=== PATIENT | male | born 2000 | race American Indian/Alaskan Native ===

== ENCOUNTER 2023-04-15 13:58 | Emergency (ER) | payer SELFPAY ==
[2023-04-15] MEDS ORDERED: Sodium Chloride 0.9% 1,000 ML IV ONE (14:24)
[2023-04-15] MEDS ORDERED: Ondansetron 4 MG/2 ML SDV IVPUSH ONE (14:24)
[2023-04-15 14:43] LABS: BASOPHILS ABSOLUTE AUTO 0.03 K/mm3 (0.01-0.08); BASOPHILS PERCENT AUTO 0.3 % (0.1-1.2); EOSINOPHILS ABSOLUTE AUTO 0.08 K/mm3 (0.04-0.54); EOSINOPHILS PERCENT AUTO 0.7 (0.8-7.0); HEMATOCRIT 49.6 % (40.1-51.0); HEMOGLOBIN 17.5 gm/dl (13.7-17.5); IMMATURE GRAN ABSOLUTE AUTO 0.06 K/mm3 (0.00-0.10); IMMATURE GRAN PERCENT AUTO 0.5 % (<=1.0); LYMPHOCYTES ABSOLUTE AUTO 1.51 K/mm3 (1.32-3.57); LYMPHOCYTES PERCENT AUTO 12.9 % (21.8-53.1); MEAN CORPUSCULAR HEMOGLOBIN 30.5 pg (25.7-32.2); MEAN CORPUSCULAR HGB CONC 35.3 g/dl (32.2-35.5); MEAN CORPUSCULAR VOLUME 86.4 fl (79.0-92.2); MEAN PLATELET VOLUME 10.7 fl (9.4-12.3); MONOCYTES ABSOLUTE AUTO 0.67 K/mm3 (0.30-0.82); MONOCYTES PERCENT AUTO 5.7 % (5.3-12.2); NEUTROPHILS ABSOLUTE AUTO 9.37 K/mm3 (1.78-5.38); NEUTROPHILS PERCENT AUTO 79.9 % (34.0-67.9); PLATELET COUNT,PLT 264 K/mm3 (163-337); RED BLOOD CELL COUNT 5.74 M/mm3 (4.63-6.08); WHITE BLOOD CELL COUNT,WBC 11.72 K/mm3 (4.23-9.07)
[2023-04-15 14:47] LABS: A/G RATIO 1.1 (1-2); ALBUMIN 4.3 g/dl (3.4-5.0); ANION GAP 14.8 (5-15); BILIRUBIN TOTAL 0.4 mg/dL (0.2-1.0); CALCIUM 8.8 mg/dL (8.5-10.1); EST CRCL DRUG DOSING (CG) 114.89 mL/min; ETHANOL BLOOD MEDICAL 0.03 gm% (0.00); MAGNESIUM 2.2 mg/dL (1.8-2.4); POTASSIUM,K 3.8 mEq/L (3.5-5.1); PROTEIN TOTAL,TP 8.4 g/dl (6.4-8.2)
[2023-04-15 17:02] LABS: BARBITURATE SCREEN,URINE NEGATIVE (CUTOFF=200); BENZODIAZEPINES SCREEN,URINE NEGATIVE (CUTOFF=150); BUPRENORPHINE SCREEN,URINE NEGATIVE (CUTOFF=10); METHADONE SCREEN, URINE NEGATIVE (CUT0FF=200); METHAMPHETAMINES SCREEN, URINE NEGATIVE (CUTOFF=500); OXYCODONE SCREEN,URINE NEGATIVE (CUT0FF=100); PROPOXYPHENE SCREEN,URINE NEGATIVE (CUTOFF=300); THC SCREEN,URINE 20 NG/ML PRESUMPTIVE POSITIVE (CUTOFF=50)
[2023-04-15 17:31] LABS: AMPHETAMINES SCREEN, URINE NEGATIVE (CUTOFF=500)
== END 2023-04-15 18:17 | disposition home or self-care (01) ==
LOC: JD.ED 13:58 → EDBD 13:58 → JD.ED 18:17
DX: F10.10 Alcohol abuse, uncomplicated (principal)
CPT/HCPCS: 36415; 80053; 80306; 80307; 83735; 85025; 93005; 96361; 96374; 99284; J2405; J7030; 93010